=== PATIENT | female | born 1950 | race Caucasian/White ===

== ENCOUNTER 2017-10-16 13:57 | Outpatient (CLI) | payer MEDICARE, BC | END 2017-10-16 13:58 | disposition home or self-care (01) | LOC: BICMAMMO 13:57 | DX: Z12.31 Encounter for screening mammogram for malignant neoplasm of breast (principal); Z13.820 Encounter for screening for osteoporosis | CPT/HCPCS: 77063; 77067; 77080 ==

== ENCOUNTER 2018-01-18 21:09 | Observation (INO) | payer MEDICARE, BC ==
[2018-01-18] MEDS ORDERED: Nitroglycerin 0.4 MG TAB (25 Tab Bottle) ONE (21:35)
[2018-01-18] MEDS ORDERED: Famotidine 20 MG TAB ONE (21:35)
[2018-01-18 21:36] LABS: #Basophils 0.1 thou/uL (0.0-0.2); #Eosinphils 0.1 thou/uL (0.0-0.7); #Lymphocytes 2.1 thou/uL (1.20-3.40); #Monocytes 0.6 thou/uL (0.11-0.59); #Neutrophils 4.4 thou/uL (1.40-6.50); %Basophils 0.9 % (0.0-1.0); %Eosinophils 1.7 % (0.0-10.0); %Lymphocytes 29.1 % (21.0-51.0); %Monocytes 7.8 % (0.0-10.0); %Neutrophils 60.6 % (42.0-75.0); Hemoglobin 12.5 g/dL (12.0-16.0); Mean Corpuscular HGB CONC 33.6 g/dL (32.0-36.0); Mean Corpuscular Volume 89.2 fL (78.0-98.0); Mean Platelet Volume 8.9 fL (7.4-10.4); Platelet Count 129 thou/uL (130-400); RBC Distribution Width 11.2 % (11.5-14.5); Red Blood Cell (RBC) Count 4.16 mill/uL (4.20-5.40); White Blood Cell (WBC) Count 7.2 thou/uL (4.8-10.8)
[2018-01-18] MEDS ORDERED: Nitroglycerin 2% Ointment 1 INCH/1 GM Packet ONE (21:36)
[2018-01-18] MEDS ORDERED: Milk Of Magnesia 30 ML UDCUP ONE (21:36)
[2018-01-18] MEDS ORDERED: Lidocaine Viscous Sol 2% 15 ml UD Cup ONE (21:36)
[2018-01-18 21:49] LABS: ALT (SGPT) 18 U/L (8-55); AST (SGOT) 24 U/L (5-34); Alkaline Phosphatase 50 U/L (40-150); Anion Gap 14 mmol/L (10-20); BUN (Urea Nitrogen) 18 mg/dL (9.8-20.1); Bilirubin, Total 0.3 mg/dL (0.2-1.2); CK (CPK) 139 U/L (29-168); Calc. Creatinine Clearance 0 mL/min (70-130); Calcium 9.3 mg/dL (7.8-10.44); Carbon Dioxide 27 mmol/L (23-31); Chloride 104 mmol/L (98-107); Estimated GFR-MDRD 60; Globulin 3.1 g/dL (2.4-3.5); Glucose 111 mg/dL (80-115); Potassium 3.5 mmol/L (3.5-5.1); Protein, Total 7.1 g/dL (6.0-8.3); Sodium 141 mmol/L (136-145)
[2018-01-18 21:51] LABS: CKMB 3.3 ng/mL (0-6.6); Troponin I Less than 0.010 ng/mL (< 0.028)
--- NOTE | 2018-01-18 23:30 | RAD ---
CHEST ONE VIEW: INDICATIONS: Chest pain. COMPARISON: 07/28/2009 FINDINGS: The lungs are clear. There has been interval placement of a loop recorder overlying the left chest w all. Left total shoulder is unchanged. No acute osseous abnormality is evident. IMPRESSION: No acute cardiopulmonary abnormality. POS: [facility]
[2018-01-19] MEDS ORDERED: Ondansetron HCl/PF 4 MG/2 ML Vial IVP PRN (00:05)
[2018-01-19] MEDS ORDERED: Ondansetron ODT 4 MG TAB SL PRN (00:05)
[2018-01-19] MEDS ORDERED: Acetaminophen 325 MG TAB PO PRN (00:05)
[2018-01-19 00:31] VITALS: BMI 23.2
[2018-01-19] MEDS ORDERED: Morphine 4 MG/ML VIAL SLOW IVP SCH (01:45)
[2018-01-19 01:57] LABS: Troponin I Less than 0.010 ng/mL (< 0.028)
[2018-01-19] MEDS ORDERED: Pantoprazole 40 MG VIAL IVP SCH (09:00)
[2018-01-19] MEDS ORDERED: Aspirin 325 MG TAB PO SCH (09:00)
[2018-01-19] MEDS ORDERED: Famotidine 20 MG TAB PO SCH (09:00)
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
--- NOTE | 2018-01-19 11:42 | PDOC.PN ---
- Subjective Encounter Start Date: 01/19/18 Encounter Start Time: 09:15 Subjective: Follow up on admission for epigastric pain and a pre-syncopal -: episode yesterday morning, reports she became dizzy, light headed -: and had to sit down. Today, she denies chest pain or abdominal pain - Objective Resuscitation Status: FULL Vital Signs & Weight: Vital Signs (12 hours) Temp Pulse Resp BP BP Pulse Ox 01/19/18 07:14 98.9 F 43 L 16 122/60 96 01/19/18 01:50 46 L 16 127/63 99 Weight Admit Weight 63.412 kg Weight 63.412 kg I&O: 01/18/18 01/19/18 01/20/18 06:59 06:59 06:59 Output Total 350 Balance -350 Result Diagrams: 01/18/18 21:25 01/18/18 21:25 Phys Exam - Physical Examination HEENT: PERRLA, moist MMs, sclera anicteric Neck: no nodes, no JVD, supple, full ROM Respiratory: no wheezing, no rales, clear to auscultation bilateral Cardiovascular: RRR, no significant murmur Gastrointestinal: soft, non-tender, no distention Musculoskeletal: no edema, pulses present, edema present Neurological: non-focal, normal sensation, moves all 4 limbs Lymphatic: no nodes Psychiatric: normal affect, A&O x 3 Skin: normal turgor, cap refill <2 seconds Dx/Plan (1) Bradycardia Code(s): R00.1 - BRADYCARDIA, UNSPECIFIED Status: Acute (2) Epigastric abdominal pain Code(s): R10.13 - EPIGASTRIC PAIN Status: Acute - Plan cont current plan of care -: Cardiology consult placed -: Added PPI for epigastric pain for possible GERD -: Prior Echo/Stress test results from Cardiology office received and on chart -: Patient had a cardiac cath today * .
[2018-01-19] MEDS ORDERED: Iopamidol 370 76% 100 ML VIAL ONE (13:10)
[2018-01-19] MEDS ORDERED: Lidocaine 1% (PF) 30 ML VIAL ONE (14:01)
[2018-01-19] MEDS ORDERED: Nitroglycerin 100MG/250ML BOT 250 ML ONE (14:56)
[2018-01-19] MEDS ORDERED: Heparin 10,000 UNITS/1 ML VIAL ONE (14:56)
[2018-01-19] MEDS ORDERED: Verapamil 5 MG/2 ML VIAL ONE (15:41)
[2018-01-19] MEDS ORDERED: Acetaminophen/Codeine 30-300mg Tablet PO PRN ×2 (15:55)
[2018-01-19] MEDS ORDERED: Nitroglycerin 0.4 MG TAB (25 Tab Bottle) SL PRN (15:55)
[2018-01-19] MEDS ORDERED: traMADol HCl 50 MG TAB PO PRN (15:55)
[2018-01-19] MEDS ORDERED: Sodium Chloride 0.9% 200 ML IV SCH (16:00)
[2018-01-19 19:39] VITALS: BP 147/91; TEMP 98.4
--- NOTE | 2018-01-20 07:54 | ADD-CON ---
ADDENDUM: Please refer the notes dictated by the nurse practitioner, Katie Nicole. Ms. Lockwood is a patient well known to me. She underwent cardiac catheterization approximately 5-6 y ears ago and was found to have mild coronary artery disease. She presented again with chest discomfo rt which are in abdominal area then radiated to the left side. She has a history of bradycardia in t he past with lightheadedness. She has had a link implantation, but there has not been any evidence o f any significant bradycardia or episodes that we have noted and it was interrogated today and still no evidence of abnormalities. She has a history of hypertension and hypercholesterolemia. She had a n abnormal stress test in the past. She was advised to undergo repeat cardiac catheterization a defi nitive tool to rule out evidence of progression of her coronary artery disease and she will be taken to the cardiac catheterization lab today. Otherwise for her past medical history, social history, family history, review of systems, allergies, and medications please refer to the notes dictated by the nurse practitioner. PHYSICAL EXAMINATION: GENERAL: Reveals a well-developed, well-nourished female who is in no acute distress. VITAL SIGNS: Stable. Blood pressure was 168/70, heart rate has been in the 60s-80s shows a normal s inus rhythm. HEENT: Unremarkable. CHEST: Clear to auscultation. CARDIOVASCULAR: Exam reveals a regular rate and rhythm. EXTREMITIES: Showed no clubbing, cyanosis or edema. ABDOMEN: Unremarkable. NEUROLOGIC: The patient appears to be intact. SKIN: Warm and dry. IMPRESSION: 1. A middle-aged female with history of coronary artery disease and repeat episodes of chest discomf ort with an abnormal stress test in the past. She was advised to undergo repeat cardiac catheterizat ion as a definitive tool to rule out evidence for underlying coronary disease progression. She under stands the risks of the procedure to include bleeding, infection, possibly a myocardial infarction, c erebrovascular accident, renal insufficiency, allergic contrast reaction, and the possibility of deat h. We will plan for a cardiac catheterization. 2. History of hypertension. We will continue to monitor the patient and treat her accordingly. Hop efully, we will keep blood pressure less than 130-140/80. 3. Symptomatic bradycardia. We did not see any indication the patient had any severe episodes. We will continue to monitor her with the LINQ. 4. History of gastroesophageal reflux disease. This may be the etiology of her chest discomfort als o. 5. Hypothyroidism. This will be dealt with by the primary care service.
--- NOTE | 2018-01-20 11:37 | DIS ---
DATE OF ADMISSION: 01/18/2018 DATE OF DISCHARGE: 01/19/2018 PRIMARY CARE PHYSICIAN: Dr. Bernal. DISCHARGE DIAGNOSES: 1. Symptomatic bradycardia. 2. Coronary artery disease. 3. Hypothyroidism. 4. Hypertension. 5. Gastroesophageal reflux disease. CODE STATUS: FULL. CONSULTATIONS: Dr. Campos. PROCEDURES: Cardiac catheterization. Results: Single vessel CAD, RCA 30% proximal, EF 75%. Chest x-ray, no acute abnormalities. REVIEW OF SYSTEMS: Currently, on my exam this morning, patient denies any chest pain, shortness of breath, dizziness or palpations. Denies any abdominal pain, nausea, vomiting, diarrhea. PHYSICAL EXAMINATION: VITAL SIGNS: Temperature 98.4, pulse 85, respirations are 18, pulse ox 95% on room air, blood pressure 147/91. GENERAL: Patient is alert, oriented to person, place and time, in no acute distress, nontoxic appearing. HEENT: Normocephalic, atraumatic. Pupils are equally round and reactive to light. Extraocular movements are intact. RESPIRATORY: Clear to auscultation bilaterally. No wheeze, rales or rhonchi. CARDIOVASCULAR: Patient is noted to be bradycardic. Normal S1, S2, no murmurs. ABDOMEN: Soft, nontender, nondistended, positive bowel signs in all quadrants. EXTREMITIES: Strength, sensation, pulses are equal in both bilateral upper and bilateral lower. NEUROLOGIC: Cranial nerves II-XII are grossly intact. No focal neurological deficits are noted. SKIN: Warm, dry, and intact. HOSPITAL COURSE: A 67-year-old female with symptomatic bradycardia. She had a loop recorder implanted in 2016. Patient has a history of CAD with a previous heart catheterization 5-6 years ago and has had an abnormal stress test in the past. Dr. Campos was consulted and consented the patient for repeat cardiac catheterization on this admission. After the cardiac catheterization, patient was discharged home after she completed the recovery process. She was remained stable and in good condition. ALLERGIES: She has no known allergies. HOME MEDICATIONS: She will be resumed on her home medications which include Norvasc 5 mg p.o. daily, aspirin 81 mg p.o. daily, vitamin B12 of 1000 mcg p.o. daily, vitamin D2 50,000 units p.o. once weekly, estrogens 0.45 mg p.o. daily, levothyroxine 100 mcg p.o. daily, losartan 50 mg p.o. daily, magnesium citrate 400 mg p.o. daily, melatonin 3 mg SL as needed at bedtime, multivitamin 1 tab p.o. daily, Crestor 5 mg p.o. q.p.m., and tramadol 50 mg p.o. t.i.d. as needed. DISCHARGE: Patient's condition was stable. She will be discharged to home. She will need to follow up with Dr. Bernal within 1 week and will also need to follow up with Dr. Campos within the next [address] [facility] CENTER[facility]avy
== END 2018-01-19 19:47 | disposition home or self-care (01) ==
LOC: SCSER 21:09 → 2SW 23:07
PROVIDERS: ADMIT Internal Medicine; ATTEND Internal Medicine
PROC: B2111ZZ Fluoroscopy of Multiple Coronary Arteries using Low Osmolar Contrast (ICD-10-PCS; principal; 2018-01-19)
PROC: 4A023N7 Measurement of Cardiac Sampling and Pressure, Left Heart, Percutaneous Approach (ICD-10-PCS; 2018-01-19)
DX: I25.10 Atherosclerotic heart disease of native coronary artery without angina pectoris (principal); R00.1 Bradycardia, unspecified; E03.9 Hypothyroidism, unspecified; I10 Essential (primary) hypertension; K21.9 Gastro-esophageal reflux disease without esophagitis; Z79.82 Long term (current) use of aspirin; Z79.899 Other long term (current) drug therapy
CPT/HCPCS: 71045; 80053; 82550; 82553; 83690; 84484 ×3; 85025; 93005; 93458; 96374; 96375; 99285; G0378; 36415; C9113; J1644; J2001; J2270

== ENCOUNTER 2018-10-27 15:11 | Outpatient (CLI) | payer MEDICARE, BC ==
--- NOTE | 2018-10-27 16:17 | MMO ---
Bilateral MAMMO Bilat Screen [facility]. CLINICAL HISTORY: Patient is 68 years old and is seen for screening. The patient has no family history of breast cancer. The patient has no personal history of cancer. VIEWS: The views performed were: bilateral craniocaudal with tomosynthesis and bilateral mediolateral oblique with tomosynthesis. FILMS COMPARED: The present examination has been compared to prior imaging studies performed at [facility] on 10/15/2016 and 10/16/2017, and at [facility] on 04/13/2012 and 05/12/2014. MAMMOGRAM FINDINGS: There are scattered fibroglandular densities. There are no suspicious masses, suspicious calcifications, or new areas of architectural distortion. IMPRESSION: THERE IS NO MAMMOGRAPHIC EVIDENCE OF MALIGNANCY. A ROUTINE FOLLOW-UP MAMMOGRAM IN 1 YEAR IS RECOMMENDED. THE RESULTS OF THIS EXAM WERE SENT TO THE PATIENT. ACR BI-RADS Category 1 - Negative MAMMOGRAPHY NOTE: 1. A negative mammogram report should not delay a biopsy if a dominant of clinically suspicious mass is present. 2. Approximately 10% to 15% of breast cancers are not detected by mammography. 3. Adenosis and dense breasts may obscure an underlying neoplasm. Reported by: YULI ENGLE MD Electonically Signed: [id number]
== END 2018-10-27 15:12 | disposition home or self-care (01) ==
LOC: BICMAMMO 15:11
PROVIDERS: ATTEND Internal Medicine
DX: Z12.31 Encounter for screening mammogram for malignant neoplasm of breast (principal)
CPT/HCPCS: 77063; 77067

== ENCOUNTER 2018-11-16 14:26 | Outpatient (CLI) | payer MEDICARE, BC ==
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
== END 2018-11-16 14:27 | disposition home or self-care (01) ==
LOC: SCSMRI 14:26
PROVIDERS: ATTEND Neurological Surgery
DX: M51.16 Intervertebral disc disorders with radiculopathy, lumbar region (principal); M54.5 Low back pain; M47.26 Other spondylosis with radiculopathy, lumbar region
CPT/HCPCS: 72148

== ENCOUNTER 2019-11-04 14:13 | Outpatient (CLI) | payer MEDICARE, BC ==
--- NOTE | 2019-11-04 16:21 | MMO ---
Bilateral MAMMO Bilat Screen [facility]. CLINICAL HISTORY: Patient is 69 years old and is seen for screening. The patient has no family history of breast cancer. The patient has no personal history of cancer. VIEWS: The views performed were: bilateral craniocaudal with tomosynthesis and bilateral mediolateral oblique with tomosynthesis. FILMS COMPARED: The present examination has been compared to prior imaging studies performed at [facility] on 10/15/2016, 10/16/2017 and 10/27/2018, and at [facility] on 05/12/2014. This study has been interpreted with the assistance of computer-aided detection. MAMMOGRAM FINDINGS: There are scattered fibroglandular densities. There are no suspicious masses, suspicious calcifications, or new areas of architectural distortion. IMPRESSION: THERE IS NO MAMMOGRAPHIC EVIDENCE OF MALIGNANCY. A ROUTINE FOLLOW-UP MAMMOGRAM IN 1 YEAR IS RECOMMENDED. THE RESULTS OF THIS EXAM WERE SENT TO THE PATIENT. ACR BI-RADS Category 1 - Negative MAMMOGRAPHY NOTE: 1. A negative mammogram report should not delay a biopsy if a dominant of clinically suspicious mass is present. 2. Approximately 10% to 15% of breast cancers are not detected by mammography. 3. Adenosis and dense breasts may obscure an underlying neoplasm. Reported by: JOEY TERRAZAS MD Electonically Signed: [id number]
== END 2019-11-04 14:14 | disposition home or self-care (01) ==
LOC: BICMAMMO 14:13
PROVIDERS: ATTEND Internal Medicine
DX: Z12.31 Encounter for screening mammogram for malignant neoplasm of breast (principal)
CPT/HCPCS: 77063; 77067

== ENCOUNTER 2019-12-17 14:55 | Outpatient (CLI) | payer MEDICARE, BC ==
--- NOTE | 2019-12-17 15:14 | RAD ---
EXAM: LUMBAR SPINE TWO VIEWS: 12/17/19 HISTORY: Lumbar spondylosis. Injury from a fall. COMPARISON: 12/06/15. FINDINGS: stable greater than 50% vertical height loss of L1 vertebral body. Mild dextroscoliosis of the lower lumbar vertebral column, stable. Mild stable anterolisthesis of L4 on L5 with marked narrowing at L5 -S1. IMPRESSION: Stable spondylosis with anterolisthesis of L4 on L5 and vertical height loss of L1. No significant ne w process. POS: [facility]
== END 2019-12-17 14:56 | disposition home or self-care (01) ==
LOC: BICRAD 14:55
PROVIDERS: ATTEND Neurological Surgery
DX: M47.816 Spondylosis without myelopathy or radiculopathy, lumbar region (principal); M43.16 Spondylolisthesis, lumbar region
CPT/HCPCS: 72100

== ENCOUNTER 2020-12-05 11:06 | Outpatient (CLI) | payer MEDICARE, BC | END 2020-12-05 11:07 | disposition home or self-care (01) | LOC: BICMAMMO 11:06 | PROVIDERS: ATTEND Internal Medicine | DX: Z12.31 Encounter for screening mammogram for malignant neoplasm of breast (principal) | CPT/HCPCS: 77063; 77067 ==